=== PATIENT | female | born 1980 | race Caucasian/White ===

== ENCOUNTER 2018-05-04 21:23 | Emergency (ER) | payer OTHER ==
[~2018-05-04] VITALS: Ht 167.6 cm; Wt 96.7 kg
[~2018-05-04 21:23] MED LIST: DIFLUCAN150 MG PO; MUCUS RELIEF600 M1 PO; PROAIR HFA8.5 GM IH; TESSALON PERLE100 MG PO; ZANTAC150 MG PO; ZITHROMAX Z-PA250 MG PO
[2018-05-04] MEDS ORDERED: PREDNISONE20 MG PO (21:56)
[2018-05-04] MEDS ORDERED: BENADRYL50 MG PO (21:56)
[2018-05-04] MEDS ORDERED: KENALOG,ARISTOC80 G1 TP (21:56)
[2018-05-04] MEDS ORDERED: MOTRIN800 MG PO (21:56)
[2018-05-04] MEDS ORDERED: AUGMENTIN875 MG PO (21:56)
[2018-05-04 22:55] VITALS: BP 154/93
== END 2018-05-04 22:56 | disposition home or self-care (01) ==
LOC: EME 21:23
DX: L23.9 Allergic contact dermatitis, unspecified cause (principal); K08.89 Other specified disorders of teeth and supporting structures; F17.200 Nicotine dependence, unspecified, uncomplicated
CPT/HCPCS: 99281; 99283; J7512